=== PATIENT | male | born 1980 | race Caucasian/White ===

== ENCOUNTER 2016-10-01 14:24 | Emergency (ER) | payer SELFPAY ==
[~2016-10-01] VITALS: Ht 172.7 cm; Wt 117.0 kg
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
--- NOTE | 2016-10-01 14:29 | NUR ---
DR BOUCHER AT BEDSIDE FOR EVAL
--- NOTE | 2016-10-01 14:30 | NUR ---
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 STARTED RAC #20 IV ACCESS.
[2016-10-01] MEDS ORDERED: ONDANSETRON HCL/PF 4 MG/2 ML VIAL ONE (14:37)
[2016-10-01] MEDS ORDERED: MORPHINE SULFATE INJ 4 MG/ML DISP.SYRIN ONE (14:38)
[2016-10-01] MEDS ORDERED: NITROGLYCERIN PACKET 1 GM PACKET ONE (14:40)
[2016-10-01] MEDS ORDERED: ASPIRIN EC 81 MG TABLET.DR PO ONE (14:40)
--- NOTE | 2016-10-01 14:45 | NUR ---
CARPENTER ROUGH AT BEDSIDE
[2016-10-01 14:46] LABS: BASOPHILS # (AUTO) 0.2 /CMM (0.0-0.2); EOSINOPHILS # (AUTO) 0.2 /CMM (0.0-0.7); EOSINOPHILS % (AUTO) 1.2 % (0.0-6.0); HEMATOCRIT 52 % (39-51); HEMOGLOBIN 17.8 g/dL (13.5-17.5); LYMPHOCYTES # (AUTO) 5.4 /CMM (0.8-4.8); LYMPHOCYTES % (AUTO) 29.7 % (20.0-44.0); MEAN CORPUSCULAR HEMOGLOBIN 32 PG (26.0-33.0); MEAN CORPUSCULAR HGB CONC 34 g/dl (31.0-36.0); MEAN CORPUSCULAR VOLUME 93 fL (80-96); MONOCYTES # (AUTO) 0.8 /CMM (0.1-1.30); MONOCYTES % (AUTO) 4.4 % (2.0-12.0); NEUTROPHILS # (AUTO) 11.7 /CMM (1.8-8.9); NEUTROPHILS % (AUTO) 63.7 % (43.0-81.0); PLATELET COUNT (AUTO) 211 /CMM (150-450); RDW COEFFICIENT OF VARIATION 12.7 (11.5-15.0); RED BLOOD CELL COUNT(AUTO) 5.62 MIL/uL (4.5-6.0); WHITE BLOOD COUNT (AUTO) 18.3 K/uL (4.3-11.0)
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
[2016-10-01 15:00] LABS: CALCIUM, SERUM 9.4 mg/dL (8.5-10.1); CARBON DIOXIDE 23 mmol/L (21-32); CHLORIDE 103 mmol/L (98-107); CREATININE 1.2 mg/dL (0.6-1.3); GLUCOSE 148 mg/dL (74-106); POTASSIUM 3.8 mmol/L (3.5-5.1); SODIUM SERUM 139 mmol/L (136-145); UREA NITROGEN, BLOOD 15 mg/dL (7-18)
[2016-10-01] MEDS ORDERED: IV NS 0.9% 1,000 ML BAG IV ONE (15:00)
[2016-10-01] MEDS ORDERED: MORPHINE SULFATE INJ 2 MG/ML DISP.SYRIN IV ONE ×3 (15:00)
[2016-10-01] MEDS ORDERED: ASPIRIN 81 MG TAB.CHEW PO ONE (15:00)
[2016-10-01] MEDS ORDERED: ONDANSETRON HCL/PF - ER 4 MG/2 ML VIAL IV ONE (15:00)
[2016-10-01] MEDS ORDERED: NITROGLYCERIN PACKET 1 GM PACKET TD ONE (15:00)
[2016-10-01 15:07] LABS: TROPONIN I < 0.017 ng/mL (0.00-0.056)
[2016-10-01 15:10] VITALS: BP 179/118
--- NOTE | 2016-10-01 15:10 | NUR ---
PT TRANSFER TO [facility]IA [facility]
[2016-10-01 15:11] LABS: INR 0.99 (0.87-1.13); PROTHROMBIN TIME 10.3 SECS (9.5-12.7)
[2016-10-01 15:12] LABS: B-TYPE NATRIURETIC PEPTIDE 33 PG/ML (0-125)
== END 2016-10-01 15:14 | disposition short-term general hospital (02) ==
LOC: ER 14:26
DX: I21.3 ST elevation (STEMI) myocardial infarction of unspecified site (principal); D72.829 Elevated white blood cell count, unspecified; F17.200 Nicotine dependence, unspecified, uncomplicated
CPT/HCPCS: 36415; 71010-TC; 80048-TC; 83605-TC; 83880; 84484-TC; 85025-TC; 85730-TC; A4606; J2270; J2405; J7030; Z7610